=== PATIENT | male | born 1985 | race Caucasian/White ===

== ENCOUNTER 2017-11-01 11:38 | Emergency (ER) | payer OTHER ==
[~2017-11-01] VITALS: Ht 177.8 cm; Wt 77.1 kg
[2017-11-01] MEDS ORDERED: HYDR-757 PO (11:57)
[2017-11-01] MEDS ORDERED: METH-313 PO (11:57)
--- NOTE | 2017-11-01 11:57 | ED Back Pain ---
General Chief Complaint: Back Problems Stated Complaint: LOWER BACK PAIN Source of Information: Patient Exam Limitations: No Limitations History of Present Illness Date Seen by Provider: Nov 01, 2017 Time Seen by Provider: 11:52 Initial Comments To ER with reports of left low back pain. This began about 20-30 minutes prior to arrival. He states that he was doing lifts at the gym when he had a sudden pain in the left low back. The pain is nonradiating down either leg, no loss of sensation of the genitals and no loss of bowel or bladder control. He was able to bend forward and dropped the weights, he was able to drive himself home and then here. He thought that this may be muscle spasm that he went home and drank a bunch of pickle juice and took an 800 mg ibuprofen tablet. However the pain persists. Location: Lumbar Spine, Paraspinous Muscles Timing/Duration: 1/2 Hour Severity: Severe Pain/Injury Location: Back Associated Symptoms: No numbness in legs/feet, No tingling in legs/feet, No sensory/motor loss; lower back pain; No loss of bladder control, No loss of bowel control Allergies and Home Medications Allergies Coded Allergies: Sulfa (Sulfonamide Antibiotics) (Verified Allergy, Unknown, 11/01/17) Home Medications Hydrocodone/Acetaminophen 1 Each Tablet, 1 EACH PO Q4H PRN for PAIN-SEVERE TO BREAKTHROUGH Prescribed by: MING PRITCHETT on 11/01/17 1157 Methocarbamol 750 Mg Tablet, 750 MG PO Q6H PRN for PAIN-MILD TO MODERATE Prescribed by: MING PRITCHETT on 11/01/17 1157 Patient Home Medication List Home Medication List Reviewed: Yes Constitutional: see HPI EENTM: see HPI Respiratory: no symptoms reported Cardiovascular: no symptoms reported Genitourinary: no symptoms reported Musculoskeletal: see HPI, back pain Skin: no symptoms reported Psychiatric/Neurological: No Symptoms Reported Past Hgdugmb-Shghis-Ekaulv Hx Patient Social History Recent Foreign Travel: No Contact w/Someone Who Travel: No Physical Exam Vital Signs Vital Signs - First Documented 11/01/17 11:50 Temp 96.9 Pulse 84 Resp 20 B/P (MAP) 132/91 (105) Pulse Ox 97 Capillary Refill : Height, Weight, BMI Height: '" Weight: lbs. oz. kg; BMI Method: General Appearance: No Apparent Distress, WD/WN, Other (states as long as he stands perfectly still his pain is at only about a 5. However if he twists or bends the pain increases to an 8 out of 10.) HEENT: PERRL/EOMI, TMs Normal Neck: Full Range of Motion Respiratory: Normal Breath Sounds, No Accessory Muscle Use, No Respiratory Distress Extremity: Normal Capillary Refill, Normal Inspection Neurologic/Psychiatric: Alert, Oriented x3 Skin: Normal Color, Warm/Dry Progress/Results/Core Measures Results/Orders My Orders Orders - MING PRITCHETT APRN Morphine Injection (Morphine Injection (11/01/17 12:00) Orphenadrine Injection (Norflex Injectio (11/01/17 12:00) Medications Given in ED Current Medications Medications Dose Ordered Sig/Denise Route Start Time Stop Time Status Last Admin Dose Admin Morphine Sulfate 8 mg ONCE PRN IJ 11/01/17 12:00 11/01/17 12:22 8 MG Orphenadrine Citrate 60 mg ONCE ONCE IM 11/01/17 12:00 11/01/17 12:01 DC 11/01/17 12:22 60 MG Vital Signs/I&O 11/01/17 11:50 Temp 96.9 Pulse 84 Resp 20 B/P (MAP) 132/91 (105) Pulse Ox 97 Departure Communication (Admissions) 1300-Feeling better. Will dc to home. Impression Primary Impression: Back strain Disposition: HOME, SELF-CARE Condition: Stable Departure-Patient Inst. Decision time for Depature: 11:55 Referrals: NO,LOCAL PHYSICIAN (PCP/Family) Primary Care Physician Patient Instructions: Lumbar Muscle Strain (DC) Add. Discharge Instructions: 1. Take muscle relaxers in addition to the anti-inflammatory ibuprofen. You may use either heat or ice, whichever is more comfortable to the area. No lifting or bending at the waist for 3-4 days. He may also take the hydrocodone for severe pain All discharge instructions reviewed with patient and/or family. Voiced understanding. Scripts Methocarbamol (Robaxin-750) 750 Mg Tablet 750 MG PO Q6H PRN for PAIN-MILD TO MODERATE, #14 TAB Prov: MING PRITCHETT APRN 11/01/17 Hydrocodone/Acetaminophen (Peterson 5-325 Tablet) 1 Each Tablet 1 EACH PO Q4H PRN for PAIN-SEVERE TO BREAKTHROUGH, #10 TAB Prov: MING PRITCHETT APRN 11/01/17 Work/School Note: Work Release Form Date Seen in the Emergency Department: Nov 01, 2017 Return to Work: Nov 02, 2017 MING PRITCHETT APRN Nov 01, 2017 11:57
[2017-11-01] MEDS ORDERED: ORPHENADRINE 60 MG/2 ML (NORFLEX) AMP IM ONE (12:00)
[2017-11-01] MEDS ORDERED: morphine INJ 10 MG/ML 1ML (SYR OR VIAL) IJ PRN (12:00)
[2017-11-01 13:02] VITALS: BP 116/75
--- OUTSIDE RECORDS SUMMARY | 2017-11-01 22:05 | XMS REPORT | Continuity of Care Document ---
Author Author [facility] Organization [facility] Address Unknown Phone Unavailable Allergies There is no data. Medications There is no data. Problems There is no data. Procedures There is no data. Results There is no data. Encounters ACCT No. Visit Date/Time Discharge Status Pt. Type Provider Facility Loc./Unit Complaint [id number] 09/21/2016 17:06:59 [facility] Unknown
== END 2017-11-01 13:13 | disposition home or self-care (01) ==
LOC: EDUNIT# 11:38 → ER 11:42
DX: S39.012A Strain of muscle, fascia and tendon of lower back, initial encounter (principal); Z88.2 Allergy status to sulfonamides; X50.0XXA Overexertion from strenuous movement or load, initial encounter; Y92.39 Other specified sports and athletic area as the place of occurrence of the external cause
CPT/HCPCS: 96372; 99284

== ENCOUNTER 2021-01-17 22:54 | Emergency (ER) | payer OTHER ==
[~2021-01-17] VITALS: Ht 178 cm; Wt 77.0 kg
[~2021-01-17 22:54] MED LIST: HYDR-4226 PO; METH-313 PO
[2021-01-17 22:58] VITALS: BP 159/93
--- NOTE | 2021-01-17 23:00 | ED Upper Extremity ---
General Stated Complaint: R HAND INJ Source: patient Exam Limitations: no limitations History of Present Illness Date Seen by Provider: Jan 17, 2021 Time Seen by Provider: 22:57 Initial Comments 35yoM otherwise healthy RHD coming in due to R hand pain. Was boxing yesterday and normally would wear more substantial gloves, but was wearing a small wrap, hit the back with what he says is a power punch and immediately had significant, severe sharp pain in his right hand and pain started to get worse since the incident. Immediately stopped boxing. Now there is an increase in swelling. Tried an MARCELINO bandage and ibuprofen which have helped minimally. Allergies and Home Medications Allergies Coded Allergies: Sulfa (Sulfonamide Antibiotics) (Verified Allergy, Unknown, 11/01/17) Patient Home Medication List Home Medication List Reviewed: Yes Discontinued Medications Hydrocodone/Acetaminophen (Hydrocodone/Acetaminophen 5 MG/325 MG TAB) 1 Each Tablet, 1 EACH PO Q4H PRN for PAIN-SEVERE TO BREAKTHROUGH Discontinued Reason: No Longer Taking Prescribed by: MING PRITCHETT on 11/01/17 9465 Last Action: Discontinued Methocarbamol (Robaxin-750) 750 Mg Tablet, 750 MG PO Q6H PRN for PAIN-MILD TO MODERATE Discontinued Reason: No Longer Taking Prescribed by: MING PRITCHETT on 11/01/171156 Last Action: Discontinued Review of Systems Constitutional: no symptoms reported EENTM: no symptoms reported Respiratory: no symptoms reported Cardiovascular: no symptoms reported Gastrointestinal: no symptoms reported Genitourinary: no symptoms reported Musculoskeletal: joint pain Skin: no symptoms reported Psychiatric/Neurological: No Symptoms Reported All Other Systems Reviewed Negative Unless Noted: Yes Past Onbbzwe-Hgpmdw-Cqkcgu Hx Past Medical History Surgeries: Yes (ACL, MCL, PATELLA-L KNEE, LITHROTRIPSY) Respiratory: No Cardiac: No Neurological: No Genitourinary: Yes Kidney Stones Gastrointestinal: No Musculoskeletal: No Endocrine: No HEENT: No Cancer: No Psychosocial: No Integumentary: No Physical Exam Vital Signs Vital Signs - First Documented 01/17/21 22:58 Temp 36.9 Pulse 80 Resp 16 B/P (MAP) 159/93 (115) Pulse Ox 100 O2 Delivery Room Air Capillary Refill : Height, Weight, BMI Height: 5'10.00" Weight: 170lbs. oz. [id number]; BMI Method:Stated General Appearance: WD/WN, no apparent distress HEENT: PERRL/EOMI, normal ENT inspection, pharynx normal Neck: non-tender, full range of motion, supple, normal inspection Cardiovascular: regular rate, rhythm, no edema, no murmur Respiratory: chest non-tender, lungs clear, normal breath sounds, no respiratory distress, no accessory muscle use Gastrointestinal: normal bowel sounds, non tender, soft; No distended, No guarding, No rebound Shoulder: normal inspection, non-tender, no evidence of injury, normal ROM Elbow/Forearm: normal inspection, non-tender, no evidence of injury, normal ROM Wrist: Yes normal inspection, Yes non-tender, Yes no evidence of injury, Yes normal ROM Hand: bone tenderness (tender along 5th metacarpal, no scaphoid tenderness), limited ROM, soft tissue tenderness, swelling Neurologic/Tendon: normal sensation, normal motor functions, normal tendon functions Neurologic/Psychiatric: no motor/sensory deficits, alert, normal mood/affect Skin: normal color, warm/dry Lymphatic: no adenopathy Procedures/Interventions Splinting and Joint Reduction : Pre-Proc Neuro Vasc Exam: normal Post-Proc Neuro Vasc Exam: normal Progress Cotton wrapping applied to the arm, Ortho-Glass splint then applied as an ulnar gutter splint with Marcelino wrap afterwards. Patient tolerated well. Marcelino wrap: Yes Hand-Made Type: orthoglass (ulnar gutter splint) Progress/Results/Core Measures Results/Orders My Orders Orders - ANT PAYNE MD Hand, Right, 3 Views (01/17/21 23:13) Hydrocodone/Apap 5/325 Tablet (Lortab 5 (01/17/21 23:15) Rx-Hydrocodone/Apap 5-325 Mg (Rx-Vicodin (01/18/21 00:00) Medications Given in ED Current Medications Medications Dose Ordered Sig/Denise Route Start Time Stop Time Status Last Admin Dose Admin Acetaminophen/ Hydrocodone Bitart 1 ea ONCE ONCE PO 01/17/21 23:15 01/17/21 23:17 DC 01/17/21 23:25 1 EA Vital Signs/I&O 01/17/21 01/17/21 22:58 23:25 Temp 36.9 36.9 Pulse 80 Resp 16 B/P (MAP) 159/93 (115) Pulse Ox 100 O2 Delivery Room Air Progress Progress Note : Progress Note 35-year-old male with above history coming in due to right hand pain after hitting a boxing bag with just a minimal wrap on his hand now with significant fifth metacarpal pain. There is swelling and tenderness over the fifth metacarpal. No open wound and no fight bite. He was given hydrocodone for pain as he just took ibuprofen and it does not feel like it helped. X-ray ordered with likely base of the fourth and fifth metacarpal fracture with minor subluxation. He was placed in an ulnar gutter splint and I will recommend he follow-up with orthopedics in the next week. He was then discharged home in stable condition with strict return precautions Diagnostic Imaging Diagonstic Imaging: Xray Plain Films/CT/US/NM/MRI: hand Comments [facility]. [place], [place] NAME: NEELA WEIR [facility] REC#: [id number] PT STATUS: REG ER : 1985 PHYSICIAN: ANT PAYNE MD ADMIT DATE: 01/17/21/ER Draft Date of Exam:01/17/21 HAND, RIGHT, 3 VIEWS INDICATION: Right hand pain at the base of the 4th and 5th metacarpals. No comparison is available. FINDINGS: On the PA view, the appearance of the right hand and wrist appear appropriate. On the oblique and lateral views, however, there are abnormal relationships demonstrated of the base of the metacarpals and the adjacent carpals and there appear to be fractures of the base of both the 4th and 5th metacarpals. These findings would be better assessed with a CT through the right hand for further characterization. No other fractures or malalignment are evident. IMPRESSION: Abnormal subluxation with apparent fractures involving the base of the 4th and 5th metacarpals. There appear to be abnormal relationships of the carpometacarpal joints on the lateral view. The findings could be further characterized with CT imaging. Dictated on workstation # [id number] Dict: 01/17/21 2337 Trans: 01/17/21 2353 [facility] [id number] Interpreted by: ANTONY MACIAS MD Electronically signed by: Departure Impression Primary Impression: Closed fracture of 4th metacarpal Qualified Codes: S62.344A - Nondisplaced fracture of base of fourth metacarpal bone, right hand, initial encounter for closed fracture Additional Impression: Closed fracture of 5th metacarpal Qualified Codes: S62.346A - Nondisplaced fracture of base of fifth metacarpal bone, right hand, initial encounter for closed fracture Disposition: HOME, SELF-CARE Condition: Stable Departure-Patient Inst. Decision time for Depature: 23:55 Referrals: YOHANA MONTERO MD Patient Instructions: Hand Pain (DC) Add. Discharge Instructions: You were seen in the emergency department for right hand pain after punching a boxing bag. Your x-ray did not show any obviously displaced fracture, however it is still possible you have a small fracture that is missed. That is why we placed you in the splint. Please follow-up with orthopedics within the next week or so for repeat exam and possibly repeat x-ray. Take ibuprofen 600 mg every 6 hours for pain as well as Tylenol 1000 g every 6-8 hours for pain. You can also ice it. ANT PAYNE MD Jan 17, 2021 23:00
[2021-01-17] MEDS ORDERED: HYDROcodone/APAP 5 MG/325 MG (LORTAB) TAB PO ONE (23:15)
--- NOTE | 2021-01-17 23:55 | Diagnostic Imaging Report ---
INDICATION: Right hand pain at the base of the 4th and 5th metacarpals. No comparison is available. FINDINGS: On the PA view, the appearance of the right hand and wrist appear appropriate. On the oblique and lateral views, however, there are abnormal relationships demonstrated of the base of the metacarpals and the adjacent carpals and there appear to be fractures of the base of both the 4th and 5th metacarpals. These findings would be better assessed with a CT through the right hand for further characterization. No other fractures or malalignment are evident. IMPRESSION: Abnormal subluxation with apparent fractures involving the base of the 4th and 5th metacarpals. There appear to be abnormal relationships of the carpometacarpal joints on the lateral view. The findings could be further characterized with CT imaging. Dictated by: Dictated on workstation # [id number]
== END 2021-01-18 00:05 | disposition home or self-care (01) ==
LOC: EDUNIT# 22:54 → ER 22:55
DX: S62.314A Displaced fracture of base of fourth metacarpal bone, right hand, initial encounter for closed fracture (principal); S62.316A Displaced fracture of base of fifth metacarpal bone, right hand, initial encounter for closed fracture; W22.8XXA Striking against or struck by other objects, initial encounter; Y93.71 Activity, boxing
CPT/HCPCS: 73130; 99283

== ENCOUNTER → 2021-05-20 | Outpatient (CLI) | payer OTHER ==
--- NOTE | 2021-05-20 13:41 | Diagnostic Imaging Report ---
INDICATION: VARICOCELE, QUESTIONABLE SPERMATOCELE TECHNIQUE: Real-time grayscale sonographic imaging and color vascular evaluation of the scrotum. CORRELATION STUDY: None FINDINGS: RIGHT TESTICLE: 5.2 x 2.6 x 2.4 cm. LEFT TESTICLE: 4.6 x 2.5 x 3.2 cm. The testicles are in normal location and demonstrate homogeneous echotexture. There is vascular flow to the testicles. There is relatively simple appearing right epididymal head cyst, 1.8 x 1.3 x 1.6 cm. Left epididymis unremarkable. No significant hydrocele and/or varicoceles. IMPRESSION: 1. Prominent but simple appearing nearly 2 cm right epididymal head cyst. 2. Testicles appear unremarkable with presence of normal blood flow. 3. No significant hydrocele or varicocele demonstrated at this time. Dictated by: Dictated on workstation # [id number]
== END ==
LOC: RAD 13:00
PROVIDERS: ATTEND Urology
DX: N43.40 Spermatocele of epididymis, unspecified (principal); I86.1 Scrotal varices; N50.3 Cyst of epididymis
CPT/HCPCS: 76870